=== PATIENT | male | born 1945 | race Caucasian/White ===

== ENCOUNTER 2019-01-17 14:44 | Inpatient (IN) | payer MEDICARE, MEDICAID ==
[~2019-01-17] VITALS: Ht 175.3 cm; Wt 110.9 kg
[2019-01-17] MEDS ORDERED: ASPI81TA31 PO (14:54)
[2019-01-17 15:24] LABS: BASOPHILS # (AUTO) 0.1 K/uL (0.0-8.0); EOSINOPHILS # (AUTO) 0.1 K/uL (0.0-0.7); EOSINOPHILS % (AUTO) 0.9 % (0.0-7.0); HEMATOCRIT 50.1 % (36.7-47.1); HEMOGLOBIN 16.3 g/dL (12.5-16.3); LYMPHOCYTES % (AUTO) 9.9 % (20.5-51.5); MEAN CORPUSCULAR HEMOGLOBIN 29.5 uug (23.8-33.4); MEAN CORPUSCULAR HGB CONC 33 g/dL (32.5-36.3); MEAN CORPUSCULAR VOLUME 90.4 fL (73.0-96.2); MONOCYTES # (AUTO) 0.8 K/uL (2.0-10.0); MONOCYTES % (AUTO) 7.8 % (0.0-11.0); NEUTROPHILS % (AUTO) 80.4 % (38.5-71.5); PLATELET COUNT (AUTO) 244 K/uL (152-348); RED BLOOD CELL COUNT(AUTO) 5.54 MIL/uL (4.06-5.63); WHITE BLOOD COUNT (AUTO) 9.9 K/uL (3.6-10.2)
[2019-01-17 15:34] LABS: CARBON DIOXIDE 26 mmol/L (21-32); CHLORIDE 104 mmol/L (98-107); CREATININE 1.7 mg/dL (0.6-1.3); GLUCOSE 101 mg/dL (74-106); POTASSIUM 4.3 mmol/L (3.5-5.1); UREA NITROGEN, BLOOD 34 mg/dL (7-18)
[2019-01-17 15:40] LABS: ALANINE AMINOTRANSFERASE 14 U/L (16-63); ALKALINE PHOSPHATASE 79 U/L (50-136); ASPARTATE AMINOTRANSFERASE 17 U/L (15-37); BILIRUBIN,DIRECT 0.1 mg/dL (0.0-0.2); BILIRUBIN,TOTAL 0.4 mg/dL (0.2-1.0); TOTAL PROTEIN, SERUM 8.2 g/dL (6.4-8.2)
[2019-01-17 15:48] LABS: THYROID STIMULATING HORMONE 2.571 mIU/mL (0.358-3.740)
[2019-01-17 16:01] LABS: ETHANOL < 3 MG/DL (0-0)
[2019-01-17 18:01] LABS: *BLOOD, URINE NEGATIVE (NEGATIVE); *CLARITY,URINE CLEAR (CLEAR); *COLOR,URINE DARK YELLOW (YELLOW); *KETONES,URINE TRACE (NEGATIVE); *UROBILINOGEN,URINE 0.2 E.U./dl (NORMAL); LEUKOCYTE ESTERASE ,URINE NEGATIVE (NEGATIVE); NITRITE, URINE NEGATIVE (NEGATIVE); PH,URINE 5.5 (5.0-8.0); UGLUCOSE NEGATIVE (NEGATIVE)
[2019-01-17 18:18] LABS: *BILIRUBIN,URIN 1+ (NEGATIVE)
[2019-01-17 18:27] LABS: BACTERIA,URINE NONE SEEN /HPF (NONE SEEN); RBC,URINE 0-3 /HPF (0-3); SQUAMOUS EPITHELIAL CELL,UR FEW /HPF (NONE SEEN); WBC,URINE 0-3 /HPF (0-3)
[2019-01-17 18:29] LABS: MUCUS,URINE FEW /LPF (0-FEW)
[2019-01-17 18:31] LABS: *AMPHETAMINE, URINE POSITIVE (NEGATIVE); *BARBITURATE, URINE NEGATIVE (NEGATIVE); *CANNABINOID, URINE NEGATIVE (NEGATIVE); *COCCAINE, URINE POSITIVE (NEGATIVE); *OPIATE, URINE NEGATIVE (NEGATIVE); *PHENCYCLIDINE SCREEN,URINE NEGATIVE (NEGATIVE)
[2019-01-17 21:31] VITALS: BP 111/60
[2019-01-17] MEDS ORDERED: BLOOD SUGAR DIAGNOSTIC 1 EACH STRIP VI ONE (21:45)
[2019-01-17] MEDS ORDERED: MAG HYDROX/AL HYDROX/SIMETH 30 ML LIQUID UDC PO PRN (21:45)
[2019-01-17] MEDS ORDERED: MAGNESIUM HYDROXIDE 30 ML LIQUID UDC PO PRN (21:45)
[2019-01-17] MEDS ORDERED: LORAZEPAM 0.5 MG TABLET PO PRN (21:45)
[2019-01-18] MEDS: ASPIRIN 81 MG TAB.CHEW PO SCH (08:24)
[2019-01-18] MEDS ORDERED: LORAZEPAM 0.5 MG TABLET PO PRN (09:00)
[2019-01-18] MEDS: ARIPIPRAZOLE 2 MG TABLET PO SCH (09:28)
[2019-01-18] MEDS: FLUOXETINE HCL 20 MG CAPSULE PO SCH (09:28)
[2019-01-18 10:55] VITALS: BP 122/66
[2019-01-18 15:27] VITALS: BP 121/47
[2019-01-18 20:00] VITALS: BP 127/53
[2019-01-19 04:00] VITALS: BP 128/61
[2019-01-19 09:02] LABS: CARBON DIOXIDE 30 mmol/L (21-32); CHLORIDE 102 mmol/L (98-107); GLUCOSE 101 mg/dL (74-106); POTASSIUM 4.3 mmol/L (3.5-5.1); UREA NITROGEN, BLOOD 21 mg/dL (7-18)
[2019-01-19] MEDS: ASPIRIN 81 MG TAB.CHEW PO SCH (09:13)
[2019-01-19] MEDS: ARIPIPRAZOLE 2 MG TABLET PO SCH (09:13)
[2019-01-19] MEDS: FLUOXETINE HCL 20 MG CAPSULE PO SCH (09:13)
[2019-01-19 11:30] VITALS: BP 118/41
[2019-01-19] MEDS: LORAZEPAM 1 MG TABLET PO PRN (11:39)
[2019-01-19 15:34] VITALS: BP 122/48
[2019-01-19 20:18] VITALS: BP 99/64
[2019-01-20] MEDS: LORAZEPAM 1 MG TABLET PO PRN (07:00)
[2019-01-20] MEDS: ARIPIPRAZOLE 2 MG TABLET PO SCH (08:17)
[2019-01-20] MEDS: FLUOXETINE HCL 20 MG CAPSULE PO SCH (08:18)
[2019-01-20] MEDS: ASPIRIN 81 MG TAB.CHEW PO SCH (08:18)
[2019-01-20 11:30] VITALS: BP 110/60
[2019-01-20 15:49] VITALS: BP 134/62
[2019-01-20 20:50] VITALS: BP 114/72
[2019-01-20] MEDS: ZOLPIDEM 5 MG TABLET PO PRN (22:14)
[2019-01-21 07:30] VITALS: BP 132/67
[2019-01-21] MEDS ORDERED: ARIPIPRAZOLE 2 MG TABLET PO SCH (09:00)
[2019-01-21] MEDS: ARIPIPRAZOLE 5 MG TABLET PO SCH (09:49)
[2019-01-21] MEDS: ASPIRIN 81 MG TAB.CHEW PO SCH (09:49)
[2019-01-21] MEDS: FLUOXETINE HCL 20 MG CAPSULE PO SCH (09:49)
[2019-01-21] MEDS: ACETAMINOPHEN 325 MG TABLET PO PRN (15:12)
[2019-01-21 15:28] VITALS: BP 123/64
[2019-01-21] MEDS: CLOTRIMAZOLE 1% CREAM 30 GM TUBE TOP SCH (18:23)
[2019-01-21 20:57] VITALS: BP 120/73
[2019-01-22 07:30] VITALS: BP 116/73
[2019-01-22] MEDS: ARIPIPRAZOLE 5 MG TABLET PO SCH (08:48)
[2019-01-22] MEDS: FLUOXETINE HCL 20 MG CAPSULE PO SCH (08:49)
[2019-01-22] MEDS: ASPIRIN 81 MG TAB.CHEW PO SCH (08:49)
[2019-01-22] MEDS: CLOTRIMAZOLE 1% CREAM 30 GM TUBE TOP SCH ×2 (10:48→16:11)
[2019-01-22 15:16] VITALS: BP 124/64
[2019-01-22] MEDS: LORAZEPAM 1 MG TABLET PO PRN (19:31)
[2019-01-22] MEDS: ZOLPIDEM 5 MG TABLET PO PRN (23:16)
[2019-01-22 23:23] VITALS: BP 101/60
[2019-01-23 07:30] VITALS: BP 125/78
[2019-01-23] MEDS: ASPIRIN 81 MG TAB.CHEW PO SCH (08:14)
[2019-01-23] MEDS: CLOTRIMAZOLE 1% CREAM 30 GM TUBE TOP SCH ×2 (08:14→15:56)
[2019-01-23] MEDS: FLUOXETINE HCL 20 MG CAPSULE PO SCH (08:14)
[2019-01-23] MEDS: ARIPIPRAZOLE 5 MG TABLET PO SCH (08:14)
[2019-01-23] MEDS: LORAZEPAM 1 MG TABLET PO PRN (10:50)
[2019-01-23 16:00] VITALS: BP 122/75
[2019-01-23 21:06] VITALS: BP 122/69
[2019-01-24] MEDS: LORAZEPAM 1 MG TABLET PO PRN ×2 (06:00→13:13)
[2019-01-24 07:30] VITALS: BP 131/78
[2019-01-24] MEDS: ARIPIPRAZOLE 5 MG TABLET PO SCH (08:58)
[2019-01-24] MEDS: ASPIRIN 81 MG TAB.CHEW PO SCH (08:58)
[2019-01-24] MEDS: FLUOXETINE HCL 10 MG CAPSULE PO SCH (08:58)
[2019-01-24] MEDS: CLOTRIMAZOLE 1% CREAM 30 GM TUBE TOP SCH ×2 (08:58→16:37)
[2019-01-24] MEDS ORDERED: FLUOXETINE HCL 20 MG CAPSULE PO SCH (09:00)
[2019-01-24 15:20] VITALS: BP 119/73
[2019-01-24 20:00] VITALS: BP 108/61
[2019-01-24] MEDS: ZOLPIDEM 5 MG TABLET PO PRN (22:10)
[2019-01-25 07:30] VITALS: BP 137/79
[2019-01-25] MEDS: CLOTRIMAZOLE 1% CREAM 30 GM TUBE TOP SCH ×2 (08:23→17:00)
[2019-01-25] MEDS: FLUOXETINE HCL 10 MG CAPSULE PO SCH (08:23)
[2019-01-25] MEDS: ARIPIPRAZOLE 5 MG TABLET PO SCH (08:24)
[2019-01-25] MEDS: ASPIRIN 81 MG TAB.CHEW PO SCH (08:24)
[2019-01-25 15:11] VITALS: BP 119/52
[2019-01-25] MEDS: LORAZEPAM 1 MG TABLET PO PRN (16:59)
[2019-01-25 20:14] VITALS: BP 106/69
[2019-01-25] MEDS: ZOLPIDEM 5 MG TABLET PO PRN (21:56)
[2019-01-26 07:30] VITALS: BP 149/83
[2019-01-26] MEDS: ARIPIPRAZOLE 5 MG TABLET PO SCH (08:20)
[2019-01-26] MEDS: ASPIRIN 81 MG TAB.CHEW PO SCH (08:21)
[2019-01-26] MEDS: FLUOXETINE HCL 10 MG CAPSULE PO SCH (08:21)
[2019-01-26] MEDS: CLOTRIMAZOLE 1% CREAM 30 GM TUBE TOP SCH ×2 (08:21→17:00)
[2019-01-26] MEDS: ACETAMINOPHEN 325 MG TABLET PO PRN (09:44)
[2019-01-26] MEDS ORDERED: OLANZAPINE 10 MG VIAL IM ONE (13:00)
[2019-01-26 16:00] VITALS: BP 126/65
[2019-01-26 20:33] VITALS: BP 113/66
[2019-01-26] MEDS: ZOLPIDEM 5 MG TABLET PO PRN (21:53)
[2019-01-27 08:00] VITALS: BP 139/81
[2019-01-27] MEDS: FLUOXETINE HCL 10 MG CAPSULE PO SCH (08:35)
[2019-01-27] MEDS: ASPIRIN 81 MG TAB.CHEW PO SCH (08:35)
[2019-01-27] MEDS: ARIPIPRAZOLE 5 MG TABLET PO SCH (08:35)
[2019-01-27] MEDS: CLOTRIMAZOLE 1% CREAM 30 GM TUBE TOP SCH (09:44)
== END 2019-01-27 10:45 | disposition home or self-care (01) | DRG 885 ==
LOC: ER 14:44 → GPSOV3 20:49 → GPS 01-20 18:28
PROVIDERS: ADMIT Psychiatry & Neurology Psychiatry; ATTEND Internal Medicine
DX: F33.3 Major depressive disorder, recurrent, severe with psychotic symptoms (principal); N17.0 Acute kidney failure with tubular necrosis; N18.9 Chronic kidney disease, unspecified; I13.0 Hypertensive heart and chronic kidney disease with heart failure and stage 1 through stage 4 chronic kidney disease, or unspecified chronic kidney disease; I50.32 Chronic diastolic (congestive) heart failure; Z91.5 Personal history of self-harm; F15.10 Other stimulant abuse, uncomplicated; F14.10 Cocaine abuse, uncomplicated; B35.6 Tinea cruris; F17.210 Nicotine dependence, cigarettes, uncomplicated
CPT/HCPCS: 36415; 70030-TC; 71045; 80307; 84443; 85025; 93005; A4663; G0480

== ENCOUNTER 2019-03-07 14:52 | Inpatient (IN) | END 2019-03-10 18:30 | DRG 683 | DX: N17.0 Acute kidney failure with tubular necrosis (principal); I13.0 Hypertensive heart and chronic kidney disease with heart failure and stage 1 through stage 4 chronic kidney disease, or unspecified chronic kidney disease; R45.851 Suicidal ideations; D68.59 Other primary thrombophilia; F33.2 Major depressive disorder, recurrent severe without psychotic features; I50.32 Chronic diastolic (congestive) heart failure; E86.0 Dehydration; N18.2 Chronic kidney disease, stage 2 (mild); E66.9 Obesity, unspecified; Z68.35 Body mass index [BMI] 35.0-35.9, adult; M19.90 Unspecified osteoarthritis, unspecified site; F15.10 Other stimulant abuse, uncomplicated; F14.10 Cocaine abuse, uncomplicated; Z74.09 Other reduced mobility; J44.9 Chronic obstructive pulmonary disease, unspecified; F17.210 Nicotine dependence, cigarettes, uncomplicated; Z90.49 Acquired absence of other specified parts of digestive tract; Z91.14 Patient's other noncompliance with medication regimen ==

== ENCOUNTER 2019-03-10 19:08 | Inpatient (IN) | payer MEDICARE, OTHER ==
[~2019-03-10] VITALS: Ht 175.3 cm; Wt 109.8 kg
[2019-03-10] MEDS ORDERED: MAGNESIUM HYDROXIDE 30 ML LIQUID UDC PO PRN (19:45)
[2019-03-10] MEDS ORDERED: TEMAZEPAM 7.5 MG CAPSULE PO PRN (19:45)
[2019-03-10] MEDS ORDERED: ACETAMINOPHEN 325 MG TABLET PO PRN (19:45)
[2019-03-10] MEDS ORDERED: LORAZEPAM 0.5 MG TABLET PO PRN (19:45)
[2019-03-10] MEDS ORDERED: MAG HYDROX/AL HYDROX/SIMETH 30 ML LIQUID UDC PO PRN (19:45)
--- NOTE | 2019-03-10 20:01 | NUR ---
Dr Ledezma paged through [facility] regarding medication reconciliation, awaiting call back.
[2019-03-10 20:30] VITALS: BP 127/73
[2019-03-10] MEDS ORDERED: ALBUTEROL SULFATE 1.25 MG/3 ML NEBU NEB PRN (23:00)
--- NOTE | 2019-03-10 23:00 | NUR ---
received to care, on a voluntary status, at 1840, from the [facility] surgical floor, where he was being treated for acute renal failure/dehydration. upon arrival on the unit, he signed the voluntary form, and was given patients right handbook. according to the patient, he lives in an RV vehicle with friends. he has been feeling increasingly depressed, and lonely. he presented himself to the emergency room, 3 days ago, stating he was feeling suicidal, and wanted to either walk into traffic, or shoot himself with a gun. upon arrival on our unit, he denied feeling suicidal, but still felt very depressed. he expressed interest in finding placement, which he was resistive to, last admission here, last month (january 2019) upon arrival, he was very anxious. PRN ativan was given at 2022, which was helpful in calming him down. after PRN restoril at 2147, he went to sleep. as of now, he remains asleep. no distress noted. will continue to monitor closely.
--- NOTE | 2019-03-11 06:00 | NUR ---
slept 6.5 hours. continues to sleep. no distress noted.
[2019-03-11 07:30] VITALS: BP 119/76
--- NOTE | 2019-03-11 07:30 | NUR ---
Sleeping, appears comfortable
[2019-03-11] MEDS: NICOTINE 14 MG/24HR PATCH TD SCH ×3 (09:00→09:52)
[2019-03-11] MEDS: FLUOXETINE HCL 20 MG CAPSULE PO SCH (09:24)
--- NOTE | 2019-03-11 09:25 | NUR ---
Withdrawn, but compliant with taking of medication. Refused Nicotine patch, verbalizing he has stopped smoking and is okay with out nicotine patch.
--- NOTE | 2019-03-11 11:28 | NUR ---
Initial Discharge Plan: Patient currently lives in a mobile home with roommates, no direct address given. Patient will return and continue to reside there. Patient gave no supportive contacts at this time. poultry process worker will continue to work with patient, and MD to ensure a safe and proper discharge plan.
[2019-03-11] MEDS: BLOOD SUGAR DIAGNOSTIC 1 EACH STRIP VI SCH ×3 (11:30→20:26)
[2019-03-11] MEDS ORDERED: INSULIN REGULAR, HUMAN 300 UNIT/3 ML VIAL SQ PRN (11:30)
[2019-03-11] MEDS ORDERED: DEXTROSE 50% 50 ML DISP.SYRIN IV PRN (11:30)
--- NOTE | 2019-03-11 12:00 | NUR ---
Refused blood sugar checked, doesn't like needles
--- NOTE | 2019-03-11 15:00 | NUR ---
Sitting in the dining area, responds to interaction.
[2019-03-11 15:45] VITALS: BP 116/74
--- NOTE | 2019-03-11 17:48 | NUR ---
With fair appetite. refused blood sugar checked, no diabetes history
[2019-03-11 20:09] VITALS: BP 106/73
[2019-03-11] MEDS: QUETIAPINE FUMARATE 25 MG TABLET PO SCH (21:00)
--- NOTE | 2019-03-11 21:25 | NUR ---
Patient received to care. Alert and orients x 2-3. Pleasant, but withdrawn. Refused evening blood sugar check. Will f/u with MD regarding DC of BS due to A1C level. Compliant with medications. Will continue to monitor. Addendum: 03/11/19 at 2131 by MU PADILLA RN Patient non-compliant with medications.
[2019-03-12 07:30] VITALS: BP_SYST 148; BP_DIAS 59; BP_DIAS 73
[2019-03-12] MEDS: FLUOXETINE HCL 20 MG CAPSULE PO SCH (08:39)
[2019-03-12] MEDS: NICOTINE 14 MG/24HR PATCH TD SCH (08:39)
[2019-03-12] MEDS: HYDROXYZINE PAMOATE 25 MG CAPSULE PO PRN (14:46)
[2019-03-12 16:53] VITALS: BP 113/59
[2019-03-12] MEDS: QUETIAPINE FUMARATE 25 MG TABLET PO SCH (19:50)
[2019-03-12 20:11] VITALS: BP 111/68
--- NOTE | 2019-03-13 05:49 | NUR ---
Patient compliant with medications last night. Slept 8.45 hours. Still in bed at this time. No distress noted.
[2019-03-13 07:30] VITALS: BP 137/81
[2019-03-13] MEDS: NICOTINE 14 MG/24HR PATCH TD SCH (08:41)
[2019-03-13] MEDS: FLUOXETINE HCL 20 MG CAPSULE PO SCH (08:41)
[2019-03-13] MEDS ORDERED: INFLUENZA VACCINE 2019-2020 0.5 ML DISP.SYRIN IM ONE (11:00)
[2019-03-13] MEDS: HYDROXYZINE PAMOATE 25 MG CAPSULE PO PRN (15:12)
[2019-03-13 15:59] VITALS: BP 126/56
[2019-03-13 20:00] VITALS: BP 102/58
[2019-03-13] MEDS: QUETIAPINE FUMARATE 25 MG TABLET PO SCH (20:28)
--- NOTE | 2019-03-13 23:00 | NUR ---
received to care, watching tv with male peers, pleasant upon approach. complaint with medications and staff direction. as of 2299, he remains awake. PRN medications offered for insomnia or anxiety, but he declined. directed back to his room, from the tv room. currently lying in bed. no distress noted. will continue to monitor closely.
--- NOTE | 2019-03-14 00:30 | NUR ---
appears to be asleep. no distress noted.
--- NOTE | 2019-03-14 06:00 | NUR ---
slept 5.0 hours. continues to sleep. no distress noted.
[2019-03-14 08:02] VITALS: BP 112/61
[2019-03-14] MEDS: FLUOXETINE HCL 20 MG CAPSULE PO SCH (08:36)
[2019-03-14] MEDS: NICOTINE 14 MG/24HR PATCH TD SCH (08:37)
[2019-03-14 15:49] VITALS: BP 121/61
--- NOTE | 2019-03-14 16:21 | NUR ---
Substance Abuse Intervention: Patient was provided with a brief substance abuse intervention and referred to [facility] , and [facility] .
[2019-03-14] MEDS: HYDROXYZINE PAMOATE 25 MG CAPSULE PO PRN (17:22)
[2019-03-14] MEDS: QUETIAPINE FUMARATE 25 MG TABLET PO SCH (20:00)
--- NOTE | 2019-03-14 20:26 | NUR ---
received to care, pleasant upon approach. denies SI, or desire to harm self. interacting minimally, with male peers, in activity room, watching tv. compliant with medications and staff direction. no distress noted.
--- NOTE | 2019-03-14 21:50 | NUR ---
pt transferred to [facility] psych overflow, rm [phone]. report given to receiving nurse.
--- NOTE | 2019-03-14 21:51 | NUR ---
RECEIVED PT AWAKE, ALERT AND ORIENTEDX4. PT IN NO ACUTE DISTRESS. NO S.I. SAFETY AND COMFORT PROVIDED. WILL CONTINUE TO MONITOR.
[2019-03-15 04:49] VITALS: BP 123/72
--- NOTE | 2019-03-15 06:28 | NUR ---
PT SLEPT 9 HOURS. PT IN NO ACUTE DISTRESS. NO SUICIDAL IDEATION. PT COOPERATIVE WITH CARE. SAFETY AND COMFORT PROVIDED. WILL ENDORSE TO INCOMING NURSE FOR CONTINUITY OF CARE.
[2019-03-15 07:41] VITALS: BP 131/56
--- NOTE | 2019-03-15 08:00 | NUR ---
RECEIVED PT AWAKE, ALERT AND ORIENTEDX4. PT IN NO ACUTE DISTRESS. NO SOB NOTED. PATIENT STAES HAVING NO S.I. SAFETY AND COMFORT PROVIDED. WILL CONTINUE TO MONITOR.
[2019-03-15] MEDS: NICOTINE 14 MG/24HR PATCH TD SCH (08:52)
[2019-03-15] MEDS: FLUOXETINE HCL 20 MG CAPSULE PO SCH (08:52)
--- NOTE | 2019-03-15 13:38 | NUR ---
Individual therapy note: Electromedical Service Engineer met with patient today and assessed his level of suicidality. patient shared that he is not feeling suicidal and is looking forward to being discharged on . Patient presented with calm mood and euthymic affect.
[2019-03-15 15:30] VITALS: BP 112/59
--- NOTE | 2019-03-15 18:00 | NUR ---
PT RESTING COMFORTABLY IN BED. NO ACUTE DISTRESS OR SOB NOTED. PT DENIES SUICIDAL IDEATION AT THIS TIME. PT IS DIET AND MEDICATION COMPLIANT. BED LOW AND LOCKED. WILL GIVE REPORT TO INCOMING SHIFT ACCORDINGLY.
--- NOTE | 2019-03-15 19:20 | NUR ---
RECEIVED PATIENT AWAKE IN BED. PATIENT ASKING FOR SHOWER. AOX3; DENIES SUICIDAL IDEATIONS. SAFETY PROTOCOL IMPLEMENTED. WILL CONTINUE TO MONITOR.
--- NOTE | 2019-03-15 20:00 | NUR ---
Patient received into care, sitting up in bed, watching television. Patient has no complaints of pain or discomfort at this time. Patient has no SI at this time and has contracted for safety with the nurse. All safety and fall precaution measures are in place. Personal items are within reach at all times. Will continue to monitor and assess.
[2019-03-15 20:12] VITALS: BP 119/63
[2019-03-15] MEDS: QUETIAPINE FUMARATE 25 MG TABLET PO SCH (20:34)
--- NOTE | 2019-03-16 06:10 | NUR ---
Patient slept comfortably throughout night with no complaints of pain verbalized by patient or observed by nurse. All prescribed medications were provided as ordered and tolerated well, with no adverse side effects verbalized by patient or observed by nurse. All safety and fall precaution measures remain in place. Personal items are within reach at all times.
[2019-03-16 08:00] VITALS: BP 114/77
--- NOTE | 2019-03-16 08:00 | NUR ---
RECEIVED PT RESTING COMFORTABLY IN BED. PT DENIES SUICIDAL IDEATION AT THIS TIME. PT DENIES PAIN AT THIS TIME. NO ACUTE DISTRESS OR SOB NOTED AT THIS TIME. SAFETY MEASURES OBSERVED AND APPLIED. BED LOCKED AND IN LOW POSITION. PT ALERT AND ORIENTED X3. PLEASANT AND COOPERATIVE. WILL CONTINUE TO MONITOR FOR SAFETY AND COMFORT.
[2019-03-16] MEDS: FLUOXETINE HCL 20 MG CAPSULE PO SCH (08:55)
[2019-03-16] MEDS: NICOTINE 14 MG/24HR PATCH TD SCH (08:56)
[2019-03-16 15:14] VITALS: BP 128/52
[2019-03-16] MEDS: CLOPIDOGREL 75 MG TABLET PO SCH (17:51)
--- NOTE | 2019-03-16 18:00 | NUR ---
PT RESTING COMFORTABLY IN BED. DR BURNS ORDERED PLAVIX, PATIENT STATED REMEMBERING GETTING A STENT A YEAR AGO, FOR WHICH HE WAS TAKING A BLOOD THINNER. NO ACUTE DISTRESS NOTED. NO SOB NOTED. PT DENIES SI. WILL GIVE REPORT ACCORDINGLY.
[2019-03-16 19:58] VITALS: BP 129/76
[2019-03-16] MEDS: QUETIAPINE FUMARATE 25 MG TABLET PO SCH (20:46)
--- NOTE | 2019-03-17 00:20 | NUR ---
report received from LORRI Burgos for continuity of care. Addendum: 03/17/19 at 0053 by JANINA GARCÍA RN switched assignment
--- NOTE | 2019-03-17 02:00 | NUR ---
PT RESTING IN BED, NO VOICED COMPLAINTS. NO DISTRESS NOTED.MONITORED FOR SAFETY PER PROTOCOL. NOTHING UNUSUAL NOTED.
[2019-03-17 04:30] VITALS: BP 117/67
--- NOTE | 2019-03-17 05:48 | NUR ---
APPEARS SLEEPING, IN NO ACUTE DISTRESS.UNEVENTFUL NOC.SLEPT FAIRLY WELL.FOR POSSIBLE DC THIS AM.
--- NOTE | 2019-03-17 07:15 | NUR ---
RECEIVED PATIENT IN BED ASLEEP, EASY TO WAKE UP, AOX4. DENIES PAIN OR SOB AT THIS TIME. PATIENT DENIES SI OR HI. SAFETY AND FALL PRECAUTIONS IN PLACE. CALL LIGHT IN REACH. BED IN LOW POSITION AND LOCKED. WILL CONTINUE TO MONITOR.
--- NOTE | 2019-03-17 08:13 | NUR ---
Discharge Note: Patient will be discharged today to [facility] supervisor picking crew location at [address] [place] [address] ([phone]). Patient will be provided with a TAP card for transportation to the meeting point for 4:40pm supervisor picking crew. Patient is alert and oriented times 4 and is able to plan for self-care. Patient denies suicidal or homicidal ideation and is aware and agreeable with discharge plans. Patient presents with calm mood and euthymic affect. Patient does not have any family or support system. Patient was referred to [facility] ([phone]) for outpatient psychiatric follow up. Patient has a primary care physician, Dr. Dinora Martinez at [facility] ([phone]) but refused to have a follow up appointment scheduled at this time. Patient was provided with a brief substance abuse intervention and provided with the [facility] Substance Abuse Self-helpline (SAS) ([phone]), [facility] [address] [place] [address] ([phone]), [address] [place] [address] ([phone]). Patient was provided with the homeless retirement packet, which includes a list of emergency shelters, housing resources, drop in centers, and showers/hot meals centers. This also included the Homeless Information Hotline (403)-914-8814 or 211, [employer] , and the [facility] ([phone]. Patient was also provided with outpatient mental health resources and a copy of these resources were given to the patient and a copy was placed in his chart. Patient signed the homeless waiver form and a copy of this was placed in the chart.
[2019-03-17] MEDS: FLUOXETINE HCL 20 MG CAPSULE PO SCH (08:52)
[2019-03-17] MEDS: CLOPIDOGREL 75 MG TABLET PO SCH (08:52)
[2019-03-17] MEDS: NICOTINE 14 MG/24HR PATCH TD SCH (08:55)
--- NOTE | 2019-03-17 12:00 | NUR ---
PATIENT DISCHARGED TO [facility] AT [address] [place] [place], [place] [address] *[phone]. DISCHARGE INSTRUCTIONS GIVEN AND REVIEWED WITH PATIENT. BELONGINGS LIST SIGNED. TAP CARD GIVEN TO PATIENT. RX GIVEN TO PATIENT. PATIENT AOX4 AND STABLE UPON DISCHARGE. PATIENT DENIES SI/HI. ARM BAND REMOVED AND PATIENT ESCORTED OUT OF THE UNIT WITH TRAVIS.
--- NOTE | 2019-03-31 16:07 | NUR ---
Social Work/Substance Abuse Follow Up Intervention: SW was unable to conduct a substance abuse follow up intervention due to no phone number provided for the patient.
== END 2019-03-17 12:00 | disposition home or self-care (01) | DRG 885 ==
LOC: GPS 19:08 → MEDSURG3 03-14 22:09 → GPSOV3 03-14 22:39
PROVIDERS: ADMIT Psychiatry & Neurology Psychiatry; ATTEND Student in an Organized Health Care Education/Training Program
DX: F33.2 Major depressive disorder, recurrent severe without psychotic features (principal); N18.9 Chronic kidney disease, unspecified; I50.32 Chronic diastolic (congestive) heart failure; E66.9 Obesity, unspecified; Z68.35 Body mass index [BMI] 35.0-35.9, adult; J44.9 Chronic obstructive pulmonary disease, unspecified; F15.11 Other stimulant abuse, in remission; F14.11 Cocaine abuse, in remission; Z59.0 Homelessness; F17.200 Nicotine dependence, unspecified, uncomplicated; F60.7 Dependent personality disorder
CPT/HCPCS: 90686; A4663; J1815